=== PATIENT | male | born 1975 | race Caucasian/White ===

== ENCOUNTER 2025-06-04 10:54 | Inpatient (IN) | payer OTHER ==
[~2025-06-04] VITALS: Ht 175.3 cm; Wt 88.6 kg
[2025-06-04 12:19] LABS: PLATELET COUNT (AUTO) 227 K/uL (150-450); RED BLOOD CELL COUNT(AUTO) 4.17 MIL/uL (4.50-5.90); RED CELL DISTRIBUTION WIDTH 13.0 % (11.5-14.5); WHITE BLOOD COUNT (AUTO) 6.6 K/uL (4.5-11.0)
[2025-06-04 12:26] LABS: CALCIUM, TOTAL 8.2 mg/dL (8.8-10.5); CREATININE 0.64 mg/dL (0.60-1.30); GLOMERULAR FILTR. RATE CALC > 60 mL/min (>60); GLUCOSE,RANDOM 113 mg/dL (70-110); SODIUM SERUM 135 mmol/L (136-145); UREA NITROGEN, BLOOD 11 mg/dL (7-18)
[2025-06-04 12:31] LABS: CREATINE KINASE, TOTAL ONLY 353 U/L (39-308)
[2025-06-04 12:35] LABS: LACTIC ACID 1.2 mmol/L (0.4-2.0); TROPONIN I-HIGH SENSITIVITY 4 ng/L (<76)
[2025-06-04] MEDS ORDERED: SODIUM CHLORIDE 0.9% 100 ML ONE (12:40)
[2025-06-04] MEDS ORDERED: IOHEXOL 350 MG/ML 100 ML VIAL ONE (12:40)
[2025-06-04] MEDS ORDERED: 0.9% SODIUM CHLORIDE 10 ML SYRINGE IVP ONE (12:40)
[2025-06-04] MEDS: PIPERACILLIN/TAZO 3.375 GM/D5W 50 ML IV ONE (13:23)
[2025-06-04] MEDS: VANCOMYCIN 1.75GM/WATER(PEG) 350 ML IV ONE (13:42)
[2025-06-04] MEDS ORDERED: SODIUM CHLORIDE 0.9% 500 ML IV ONE (15:11)
[2025-06-04 15:40] VITALS: BP 122/73; PULSE 80; RESP 18; TEMP 98.6; O2SAT 99
[2025-06-04] MEDS: KETOROLAC TROMETHAMINE 15 MG/ML VIAL IVP PRN (16:34)
[2025-06-04 17:50] LABS: APPEARANCE,URINE CLEAR (CLEAR); GLUCOSE, URINE (UA) NEGATIVE (NEGATIVE); LEUKOCYTE ESTERASE ,URINE NEGATIVE (NEGATIVE); NITRATE,URINE NEGATIVE (NEGATIVE); OCCULT BLOOD,URINE NEGATIVE (NEGATIVE)
[2025-06-04] MEDS: INFLUENZA VIRUS VACCINE TVS (6MO+) 2025-26/PF 45 MCG/0.5 ML SYRINGE IM. ONE (17:50)
[2025-06-04 17:51] LABS: SPECIFIC GRAVITIY, URINE > 1.030 (1.003-1.030)
[2025-06-04] MEDS ORDERED: BICT1TAB PO (18:33)
[2025-06-04] MEDS ORDERED: MAGNESIUM HYDROXIDE SUSPENSION 30 ML UDCUP PO PRN (18:45)
[2025-06-04] MEDS ORDERED: BISACODYL 10 MG RECTAL RECTAL SUPPOSITORY PR PRN (18:45)
[2025-06-04] MEDS ORDERED: ONDANSETRON HCL 4 MG/2 ML VIAL IVP PRN (18:45)
[2025-06-04] MEDS ORDERED: ACETAMINOPHEN 325 MG TABLET PO PRN (18:45)
[2025-06-04] MEDS ORDERED: ALBUTEROL SULFATE 2.5 MG/0.5 ML NEB SOLUTION NEB PRN (18:45)
[2025-06-04] MEDS ORDERED: IPRATROPIUM BROMIDE 0.5 MG/2.5 ML NEB SOLUTION NEB PRN (18:45)
[2025-06-04 19:40] VITALS: BP 136/76; PULSE 83; RESP 18; TEMP 98.2; O2SAT 98
[2025-06-04] MEDS: PIPERACILLIN/TAZO 3.375 GM/D5W 50 ML IV SCH (20:11)
[2025-06-04] MEDS: VANCOMYCIN 1.5 GM/WATER(PEG) 300 ML IV SCH (23:30)
[2025-06-04] MEDS: HEPARIN SODIUM,PORCINE 5,000 UNITS/ML VIAL SQ SCH (23:31)
[2025-06-05] MEDS: MORPHINE SULFATE 4 MG/ML SYRINGE IVP PRN (03:58)
[2025-06-05 04:13] VITALS: BP 117/73; PULSE 80; RESP 18; TEMP 98.1; O2SAT 98
[2025-06-05] MEDS: BICTEGRAV/EMTRICIT/TENOFOV ALA 50-200-25 MG TABLET PO SCH (08:19)
[2025-06-05] MEDS: PANTOPRAZOLE SODIUM 40 MG DR TABLET PO SCH (08:19)
[2025-06-05 08:44] VITALS: BP 127/81; PULSE 90; RESP 20; TEMP 98.2; O2SAT 99
[2025-06-05] MEDS ORDERED: TAMS0.4C94 PO (11:21)
[2025-06-05] MEDS: PIPERACILLIN/TAZO 3.375 GM/D5W 50 ML IV SCH (15:13)
[2025-06-05] MEDS: VANCOMYCIN 1.25 GM/WATER(PEG) 250 ML IV SCH (16:00)
[2025-06-05 19:50] VITALS: BP 118/77; PULSE 76; RESP 18; TEMP 98.8; O2SAT 97
[2025-06-06 09:13] LABS: CALCIUM, TOTAL 7.9 mg/dL (8.8-10.5); CREATININE 0.78 mg/dL (0.60-1.30); GLOMERULAR FILTR. RATE CALC > 60 mL/min (>60); GLUCOSE,RANDOM 110 mg/dL (70-110); SODIUM SERUM 136 mmol/L (136-145); UREA NITROGEN, BLOOD 12 mg/dL (7-18)
[2025-06-06 09:14] VITALS: BP 124/74; PULSE 72; RESP 18; TEMP 98.1; O2SAT 98
[2025-06-06] MEDS: HYDROCODONE/ACETAMINOPHEN 5-325 MG TABLET PO PRN (09:15)
[2025-06-06 20:20] VITALS: BP 131/81; PULSE 80; RESP 17; TEMP 98.1; O2SAT 98
[2025-06-07 04:35] VITALS: BP 124/76; PULSE 72; RESP 16; TEMP 97.7; O2SAT 95
[2025-06-07 07:04] LABS: CALCIUM, TOTAL 7.9 mg/dL (8.8-10.5); CREATININE 0.78 mg/dL (0.60-1.30); GLOMERULAR FILTR. RATE CALC > 60 mL/min (>60); GLUCOSE,RANDOM 86 mg/dL (70-110); SODIUM SERUM 136 mmol/L (136-145); UREA NITROGEN, BLOOD 17 mg/dL (7-18)
[2025-06-07 08:00] VITALS: BP 125/78; PULSE 83; RESP 18; TEMP 98; O2SAT 98
[2025-06-07] MEDS: VANCOMYCIN 1GM/WATER(PEG/NADA) 200 ML IV SCH (16:48)
[2025-06-07 20:09] VITALS: BP 120/69; PULSE 83; RESP 18; TEMP 97.9; O2SAT 98
[2025-06-08 05:13] VITALS: BP 107/63; PULSE 74; RESP 17; TEMP 98.4; O2SAT 98
[2025-06-08 06:30] LABS: CALCIUM, TOTAL 8.3 mg/dL (8.8-10.5); CREATININE 0.74 mg/dL (0.60-1.30); GLOMERULAR FILTR. RATE CALC > 60 mL/min (>60); GLUCOSE,RANDOM 96 mg/dL (70-110); SODIUM SERUM 136 mmol/L (136-145); UREA NITROGEN, BLOOD 18 mg/dL (7-18)
[2025-06-08 09:15] VITALS: BP 128/72; PULSE 72; RESP 18; TEMP 98; O2SAT 95
[2025-06-08] MEDS: MORPHINE SULFATE 4 MG/ML SYRINGE IVP PRN (14:17)
[2025-06-08 20:00] VITALS: BP 121/64; PULSE 72; RESP 18; TEMP 98.1; O2SAT 97
[2025-06-08 22:24] LABS: PLATELET COUNT (AUTO) 253 K/uL (150-450); RED BLOOD CELL COUNT(AUTO) 4.27 MIL/uL (4.50-5.90); RED CELL DISTRIBUTION WIDTH 13.2 % (11.5-14.5); WHITE BLOOD COUNT (AUTO) 5.2 K/uL (4.5-11.0)
[2025-06-08 22:31] LABS: CALCIUM, TOTAL 8.0 mg/dL (8.8-10.5); CREATININE 0.63 mg/dL (0.60-1.30); GLOMERULAR FILTR. RATE CALC > 60 mL/min (>60); GLUCOSE,RANDOM 125 mg/dL (70-110); SODIUM SERUM 134 mmol/L (136-145); UREA NITROGEN, BLOOD 19 mg/dL (7-18)
[2025-06-08 22:44] LABS: ASPARTATE AMINOTRANSFERASE 73 U/L (15-37); TOTAL PROTEIN, SERUM 7.2 g/dL (6.4-8.2)
[2025-06-09 04:00] VITALS: BP 123/73; PULSE 72; RESP 18; TEMP 97.7; O2SAT 98
[2025-06-09 07:19] LABS: CALCIUM, TOTAL 8.0 mg/dL (8.8-10.5); CREATININE 0.89 mg/dL (0.60-1.30); GLOMERULAR FILTR. RATE CALC > 60 mL/min (>60); GLUCOSE,RANDOM 107 mg/dL (70-110); SODIUM SERUM 136 mmol/L (136-145); UREA NITROGEN, BLOOD 16 mg/dL (7-18)
[2025-06-09 08:44] VITALS: BP 112/84; PULSE 84; RESP 18; TEMP 98.1; O2SAT 98
[2025-06-09 20:33] VITALS: BP 100/54; PULSE 58; RESP 18; TEMP 98.1; O2SAT 97
[2025-06-10 04:42] VITALS: BP 113/65; PULSE 75; RESP 18; TEMP 98.2; O2SAT 97
[2025-06-10 07:35] LABS: CALCIUM, TOTAL 8.1 mg/dL (8.8-10.5); CREATININE 0.76 mg/dL (0.60-1.30); GLOMERULAR FILTR. RATE CALC > 60 mL/min (>60); GLUCOSE,RANDOM 83 mg/dL (70-110); SODIUM SERUM 137 mmol/L (136-145); UREA NITROGEN, BLOOD 19 mg/dL (7-18)
[2025-06-10 08:00] VITALS: BP 117/63; PULSE 64; RESP 19; TEMP 97.9; O2SAT 98
[2025-06-10] MEDS: CALAMINE/ZINC OXIDE 177 ML LOTION TP PRN (12:36)
[2025-06-10 20:34] VITALS: BP 120/71; PULSE 73; RESP 18; TEMP 98.1; O2SAT 94
[2025-06-10] MEDS ORDERED: SODIUM CHLORIDE 0.9% 500 ML IV ONE (21:25)
[2025-06-10] MEDS: ZOLPIDEM TARTRATE 5 MG TABLET PO PRN (21:37)
[2025-06-11 06:12] LABS: CALCIUM, TOTAL 8.3 mg/dL (8.8-10.5); CREATININE 0.76 mg/dL (0.60-1.30); GLOMERULAR FILTR. RATE CALC > 60 mL/min (>60); GLUCOSE,RANDOM 89 mg/dL (70-110); SODIUM SERUM 137 mmol/L (136-145); UREA NITROGEN, BLOOD 19 mg/dL (7-18)
[2025-06-11] MEDS ORDERED: SODIUM CHLORIDE 0.9% 250 ML IV ONE (08:22)
[2025-06-11 08:27] VITALS: BP 98/62; PULSE 61; RESP 18; TEMP 98.7; O2SAT 96
[2025-06-11 20:20] VITALS: BP 101/62; PULSE 85; RESP 20; TEMP 98.1; O2SAT 96
[2025-06-12 03:23] VITALS: BP 97/51; PULSE 65; RESP 18; TEMP 97.7; O2SAT 95
[2025-06-12 08:09] LABS: CALCIUM, TOTAL 8.2 mg/dL (8.8-10.5); CREATININE 0.86 mg/dL (0.60-1.30); GLOMERULAR FILTR. RATE CALC > 60 mL/min (>60); GLUCOSE,RANDOM 80 mg/dL (70-110); SODIUM SERUM 139 mmol/L (136-145); UREA NITROGEN, BLOOD 18 mg/dL (7-18)
[2025-06-12] MEDS: TAMSULOSIN HCL 0.4 MG CAPSULE PO SCH (08:52)
[2025-06-12 08:53] VITALS: BP 98/60; PULSE 72; RESP 18; TEMP 98.3; O2SAT 99
[2025-06-12] MEDS ORDERED: SODIUM CHLORIDE 0.9% 250 ML IV ONE (14:43)
[2025-06-12 15:01] VITALS: BP 118/76; PULSE 85; RESP 17; O2SAT 97
[2025-06-12] MEDS ORDERED: CALA177S6 TP (17:19)
[2025-06-12] MEDS ORDERED: DIPH50CA39 PO (17:21)
[2025-06-12] MEDS ORDERED: DOXY-354 PO (17:22)
== END 2025-06-12 18:26 | DRG 603 ==
LOC: EMS 10:54 → EDH 13:10 → 6N 14:39 → 6S 06-09 13:03
PROVIDERS: ADMIT Hospitalist; ATTEND Hospitalist
PROC: 05HC33Z Insertion of Infusion Device into Left Basilic Vein, Percutaneous Approach (ICD-10-PCS; principal; 2025-06-06)
DX: L02.31 Cutaneous abscess of buttock (principal); M62.82 Rhabdomyolysis; L03.90 Cellulitis, unspecified; E46 Unspecified protein-calorie malnutrition; L29.9 Pruritus, unspecified; R21 Rash and other nonspecific skin eruption; Z21 Asymptomatic human immunodeficiency virus [HIV] infection status; L98.419 Non-pressure chronic ulcer of buttock with unspecified severity; L97.519 Non-pressure chronic ulcer of other part of right foot with unspecified severity; Z87.891 Personal history of nicotine dependence; Z79.899 Other long term (current) drug therapy; Z68.28 Body mass index [BMI] 28.0-28.9, adult
CPT/HCPCS: 36245; 36569; 71045; 74177; 76937; 80048; 80053; 80202; 81003; 82550; 83605; 83880; 84484; 85025; 85610; 85730; 87040; 93005; 99285; J1644; J1885; J2270; J2543; J7040; J7050; 36415-L1; 36415-TC